=== PATIENT | male | born 1980 | race African-American/Black ===

== ENCOUNTER 2016-08-24 16:16 | Emergency (ER) | payer BC ==
[~2016-08-24] VITALS: Ht 177.8 cm; Wt 114.3 kg
[~2016-08-24 16:16] MED LIST: HYDROCODONE BIT1 T11 PO; KEFLEX500 MG PO; MOTRIN800 MG PO; PREDNICOT20 MG PO; ZITHROMAX Z PA250 MG PO
[2016-08-24 16:32] LABS: BILIRUBIN NEGATIVE (NEGATIVE); BLOOD TRACE-LYSED (NEGATIVE); CLARITY CLEAR (CLEAR); COLOR YELLOW (YELLOW); GLUCOSE NEGATIVE (NEGATIVE); KETONE NEGATIVE (NEGATIVE); LEUKO ESTERASE NEGATIVE (NEGATIVE); NITRITE NEGATIVE (NEGATIVE); PROTEIN NEGATIVE (NEGATIVE); UROBILINOGEN 0.2 E.U./dl (0.2-1.0)
[2016-08-24 16:47] LABS: BACTERIA TRACE; WBC 0-2 wbc/hpf (0-5)
[2016-08-24 16:48] LABS: URINE REFLEX COMMENT NO (NO)
[2016-08-24] MEDS ORDERED: ZYRTEC10 MG PO (17:48)
== END 2016-08-24 17:15 | disposition home or self-care (01) ==
LOC: ED 16:16
PROVIDERS: Emergency Medicine
DX: R51 Headache (principal); F17.200 Nicotine dependence, unspecified, uncomplicated

== ENCOUNTER 2016-12-09 08:27 | Emergency (ER) | payer BC ==
[~2016-12-09] VITALS: Ht 177.8 cm; Wt 127.9 kg
[~2016-12-09 08:27] MED LIST changes: +ZYRTEC10 MG PO
[2016-12-09 09:12] LABS: BILIRUBIN NEGATIVE (NEGATIVE); BLOOD TRACE-INTACT (NEGATIVE); CLARITY CLEAR (CLEAR); COLOR YELLOW (YELLOW); GLUCOSE NEGATIVE (NEGATIVE); KETONE NEGATIVE (NEGATIVE); LEUKO ESTERASE NEGATIVE (NEGATIVE); NITRITE NEGATIVE (NEGATIVE); PH 6.5 (5.0-9.0); SPECIFIC GRAVITY 1.025 (1.005-1.030); UROBILINOGEN 0.2 E.U./dl (0.2-1.0)
[2016-12-09 09:29] LABS: BACTERIA TRACE; MUCOUS 1+
[2016-12-09] MEDS ORDERED: ZITHROMAX250 MG PO (09:43)
== END 2016-12-09 10:08 | disposition home or self-care (01) ==
LOC: ED 08:27
PROVIDERS: Emergency Medicine
DX: J06.9 Acute upper respiratory infection, unspecified (principal); M54.5 Low back pain; R10.30 Lower abdominal pain, unspecified; F17.200 Nicotine dependence, unspecified, uncomplicated; Z87.442 Personal history of urinary calculi

== ENCOUNTER 2016-12-31 10:42 | Emergency (ER) | payer BC ==
[~2016-12-31] VITALS: Ht 177.8 cm; Wt 127.9 kg
[~2016-12-31 10:42] MED LIST changes: +ZITHROMAX250 MG PO
[2016-12-31 11:15] LABS: BASO # 0.1 10*3/uL (0.0-0.1); BASO % 0.6 % (0.0-1.0); EOS # 0.4 10*3/uL (0.0-0.4); EOS % 3.6 % (1.0-4.0); HEMATOCRIT 45.2 % (42.0-52.0); HEMOGLOBIN 14.3 g/dl (14.0-18.0); LYMPH # 2.5 10*3/uL (1.3-4.4); LYMPH % 22.1 % (27.0-41.0); MEAN CELL VOLUME 90.2 fl (80.0-94.0); MEAN CORPUSCULAR HGB 28.5 pg (27.0-31.0); MEAN CORPUSCULAR HGB CONC 31.6 g/dl (33.0-37.0); MEAN PLATELET VOLUME 11.2 fl (9.6-12.3); MONO % 9.1 % (3.0-9.0); NEUT # 7.2 10*3/uL (2.3-7.9); NEUT % 64.2 % (47.0-73.0); PLATELET COUNT AUTOMATED 234 10*3/uL (130-400); RED BLOOD COUNT 5.01 10*6/uL (4.50-5.90); RED CELL DISTRI WIDTH 13.5 % (0-14.5); WHITE BLOOD COUNT 11.3 10*3/uL (4.8-10.8)
[2016-12-31 11:20] LABS: BILIRUBIN NEGATIVE (NEGATIVE); BLOOD 1+ (NEGATIVE); CLARITY CLEAR (CLEAR); COLOR YELLOW (YELLOW); GLUCOSE NEGATIVE (NEGATIVE); KETONE NEGATIVE (NEGATIVE); LEUKO ESTERASE NEGATIVE (NEGATIVE); NITRITE NEGATIVE (NEGATIVE); PH 5.5 (5.0-9.0); SPECIFIC GRAVITY 1.025 (1.005-1.030); UROBILINOGEN 0.2 E.U./dl (0.2-1.0)
[2016-12-31 11:28] LABS: MUCOUS TRACE
[2016-12-31 11:30] LABS: ALBUMIN 3.9 gm/dl (3.1-4.5); ALKALINE PHOSPHATASE 56 U/L (45-117); BUN 18 mg/dl (7-24); CHLORIDE 107 mmol/L (98-107); CREATININE 1.11 mg/dL (0.70-1.30); SGOT/AST 30 IU/L (3-35); SGPT/ALT 41 U/L (12-78); SODIUM 139 mmol/L (136-145); TOTAL PROTEIN 8.2 gm/dL (6.4-8.2)
== END 2016-12-31 13:32 | disposition home or self-care (01) ==
LOC: ED 10:42
PROVIDERS: Nurse Practitioner Family
DX: N34.2 Other urethritis (principal); R03.0 Elevated blood-pressure reading, without diagnosis of hypertension; R31.9 Hematuria, unspecified; F17.200 Nicotine dependence, unspecified, uncomplicated

== ENCOUNTER 2017-06-22 08:59 | Emergency (ER) | payer BC ==
[~2017-06-22] VITALS: Ht 177.8 cm; Wt 138.8 kg
[2017-06-22] MEDS ORDERED: PROVENTIL HFA6.7 GM INH (10:40)
[2017-06-22] MEDS ORDERED: ZITHROMAX250 MG PO (10:40)
[2017-06-22] MEDS ORDERED: PREDNISONE20 M1 PO (10:40)
== END 2017-06-22 10:44 | disposition home or self-care (01) ==
LOC: ED 08:59
DX: S90.852A Superficial foreign body, left foot, initial encounter (principal); J45.20 Mild intermittent asthma, uncomplicated; Z87.442 Personal history of urinary calculi; Z79.899 Other long term (current) drug therapy; X58.XXXA Exposure to other specified factors, initial encounter; Y93.89 Activity, other specified; Y92.69 Other specified industrial and construction area as the place of occurrence of the external cause; Y99.9 Unspecified external cause status

== ENCOUNTER → 2017-10-29 | Outpatient (CLI) | payer BC ==
[~2017-10-29] MED LIST changes: +PREDNISONE20 M1 PO; +PREDNISONE50 MG PO; +PROVENTIL HFA6.7 GM INH
== END | disposition home or self-care (01) ==
LOC: RESCLI 02:28
DX: E66.9 Obesity, unspecified (principal); M54.5 Low back pain; A60.1 Herpesviral infection of perianal skin and rectum; Z87.442 Personal history of urinary calculi; Z72.0 Tobacco use; Z71.6 Tobacco abuse counseling; Z71.89 Other specified counseling; Z88.8 Allergy status to other drugs, medicaments and biological substances

== ENCOUNTER 2017-11-08 03:42 | Emergency (ER) | payer BC ==
[~2017-11-08] VITALS: Ht 177.8 cm; Wt 133.4 kg
[~2017-11-08 03:42] MED LIST changes: -PREDNISONE50 MG PO
[2017-11-08] MEDS ORDERED: PREDNISONE50 MG PO (03:56)
== END 2017-11-08 04:09 | disposition home or self-care (01) ==
LOC: ED 03:42
DX: M25.571 Pain in right ankle and joints of right foot (principal); Z79.899 Other long term (current) drug therapy; Z87.442 Personal history of urinary calculi

== ENCOUNTER 2017-12-14 15:28 | Emergency (ER) | payer BC ==
[~2017-12-14] VITALS: Ht 177.8 cm; Wt 133.4 kg
[~2017-12-14 15:28] MED LIST changes: +PREDNISONE50 MG PO
[2017-12-14] MEDS ORDERED: VALACYCLOVIR H500 M1 PO ×2 (15:37→17:41)
[2017-12-14] MEDS ORDERED: ZOVIRAX5 GM T (17:41)
[2018-02-14] MEDS ORDERED: PREDNISONE50 MG PO (11:37)
[2018-02-14] MEDS ORDERED: PROAIR HFA8.5 GM INH (11:37)
== END 2017-12-14 17:55 | disposition home or self-care (01) ==
LOC: ED 15:28
DX: M25.571 Pain in right ankle and joints of right foot (principal); A60.00 Herpesviral infection of urogenital system, unspecified; M25.471 Effusion, right ankle; F17.200 Nicotine dependence, unspecified, uncomplicated; Z76.0 Encounter for issue of repeat prescription

== ENCOUNTER → 2017-12-30 | Outpatient (CLI) | payer BC ==
[~2017-12-30] MED LIST changes: +PROAIR HFA8.5 GM INH; +VALACYCLOVIR H500 M1 PO; +ZOVIRAX5 GM T
== END | disposition home or self-care (01) ==
LOC: US 14:25
DX: M79.661 Pain in right lower leg (principal); R60.9 Edema, unspecified

== ENCOUNTER → 2018-04-01 | Outpatient (CLI) | payer BC ==
[~2018-04-01] MED LIST changes: +MOBIC15 MG PO
== END | disposition home or self-care (01) ==
LOC: RESCLI 01:51
DX: Z00.00 Encounter for general adult medical examination without abnormal findings (principal); E66.9 Obesity, unspecified; F10.10 Alcohol abuse, uncomplicated; G47.30 Sleep apnea, unspecified; A60.1 Herpesviral infection of perianal skin and rectum; I10 Essential (primary) hypertension; F17.210 Nicotine dependence, cigarettes, uncomplicated; Z88.8 Allergy status to other drugs, medicaments and biological substances

== ENCOUNTER 2018-04-18 10:39 | Emergency (ER) | payer BC ==
[~2018-04-18] VITALS: Ht 177.8 cm; Wt 137.4 kg
[~2018-04-18 10:39] MED LIST changes: -MOBIC15 MG PO
[2018-04-18] MEDS ORDERED: MOBIC15 MG PO (12:53)
== END 2018-04-18 13:10 | disposition home or self-care (01) ==
LOC: ED 10:39
DX: M79.89 Other specified soft tissue disorders (principal); M79.672 Pain in left foot; M25.572 Pain in left ankle and joints of left foot; J45.909 Unspecified asthma, uncomplicated; Z79.899 Other long term (current) drug therapy; Z87.442 Personal history of urinary calculi

== ENCOUNTER → 2018-05-03 | Outpatient (CLI) | payer BC ==
[~2018-05-03] MED LIST changes: +AMOXICILLIN500 M2 PO; +MOBIC15 MG PO; +Motrin,Rufen800 MG PO
[2018-05-03 16:41] LABS: BASO # 0.1 10*3/uL (0.0-0.1); BASO % 0.4 % (0.0-1.0); EOS # 0.3 10*3/uL (0.0-0.4); EOS % 1.8 % (1.0-4.0); HEMATOCRIT 45.2 % (42.0-52.0); HEMOGLOBIN 14.5 g/dl (14.0-18.0); LYMPH # 3.6 10*3/uL (1.3-4.4); LYMPH % 21.3 % (27.0-41.0); MEAN CELL VOLUME 89.5 fl (80.0-94.0); MEAN CORPUSCULAR HGB 28.7 pg (27.0-31.0); MEAN CORPUSCULAR HGB CONC 32.1 g/dl (33.0-37.0); MEAN PLATELET VOLUME 10.5 fl (9.6-12.3); NEUT # 11.7 10*3/uL (2.3-7.9); NEUT % 69.8 % (47.0-73.0); PLATELET COUNT AUTOMATED 306 10*3/uL (130-400); RED BLOOD COUNT 5.05 10*6/uL (4.50-5.90); RED CELL DISTRI WIDTH 13.6 % (0-14.5); WHITE BLOOD COUNT 16.8 10*3/uL (4.8-10.8)
[2018-05-03 17:03] LABS: BUN 21 mg/dl (7-24); CHLORIDE 104 mmol/L (98-107); CHOLESTEROL 193 mg/dL (<200); HDL CHOLESTEROL 50 mg/dl (40-60); LDL CHOLESTEROL 116 mg/dL (9-159); POTASSIUM 3.4 mmol/L (3.5-5.1); SGOT/AST 16 IU/L (3-35); SGPT/ALT 36 U/L (12-78); SODIUM 138 mmol/L (136-145); TOTAL PROTEIN 8.5 gm/dL (6.4-8.2); TRIGLYCERIDES 135 mg/dl (<150); VLDL CHOLESTEROL 27 mg/dL (6-40)
[2018-05-03 17:11] LABS: ALKALINE PHOSPHATASE 63 U/L (45-117)
[2018-05-03 18:07] LABS: VITAMIN D, 25-HYDROXY 18.5 ng/mL (30-100)
== END | disposition home or self-care (01) ==
LOC: RESCLI 02:36 → LAB 06:52 → RESCLI 14:26
PROVIDERS: Emergency Medicine
DX: E66.9 Obesity, unspecified (principal)

== ENCOUNTER 2018-09-21 15:26 | Emergency (ER) | payer BC ==
[~2018-09-21] VITALS: Ht 177.8 cm; Wt 141.5 kg
[~2018-09-21 15:26] MED LIST changes: -AMOXICILLIN500 M2 PO; -Motrin,Rufen800 MG PO
[2018-09-21] MEDS ORDERED: Motrin,Rufen800 MG PO (15:43)
[2018-09-21] MEDS ORDERED: AMOXICILLIN500 M2 PO (15:43)
== END 2018-09-21 15:56 | disposition home or self-care (01) ==
LOC: ED 15:26
DX: K08.89 Other specified disorders of teeth and supporting structures (principal); Z79.899 Other long term (current) drug therapy

== ENCOUNTER 2018-10-26 13:05 | Emergency (ER) | payer BC ==
[~2018-10-26] VITALS: Ht 177.8 cm; Wt 143.8 kg
[~2018-10-26 13:05] MED LIST changes: +AMOXICILLIN500 M2 PO; +Motrin,Rufen800 MG PO
== END 2018-10-26 13:40 | disposition left against medical advice (07) ==
LOC: ED 13:05
DX: R00.2 Palpitations (principal); R03.0 Elevated blood-pressure reading, without diagnosis of hypertension; E66.9 Obesity, unspecified; J45.909 Unspecified asthma, uncomplicated; F17.200 Nicotine dependence, unspecified, uncomplicated; Z79.899 Other long term (current) drug therapy; Z87.442 Personal history of urinary calculi

== ENCOUNTER 2019-04-04 09:52 | Emergency (ER) | payer BC ==
[2019-04-04] MEDS ORDERED: MEDROL DOSEPAK4 MG PO (10:06)
== END 2019-04-04 10:10 | disposition home or self-care (01) ==
LOC: ED 09:52
DX: M79.89 Other specified soft tissue disorders (principal); M25.572 Pain in left ankle and joints of left foot; Z79.899 Other long term (current) drug therapy

== ENCOUNTER → 2019-05-22 | Outpatient (CLI) | payer BC ==
[~2019-05-22] MED LIST changes: +MEDROL DOSEPAK4 MG PO
== END | disposition home or self-care (01) ==
LOC: RESCLI 01:17
DX: I10 Essential (primary) hypertension (principal); E66.9 Obesity, unspecified; G47.30 Sleep apnea, unspecified; A60.1 Herpesviral infection of perianal skin and rectum; F10.11 Alcohol abuse, in remission; Z87.442 Personal history of urinary calculi; Z87.891 Personal history of nicotine dependence; F17.200 Nicotine dependence, unspecified, uncomplicated

== ENCOUNTER 2019-06-08 15:26 | Emergency (ER) | payer BC ==
[~2019-06-08] VITALS: Ht 177.8 cm; Wt 151.0 kg
[2019-06-08 15:51] LABS: BILIRUBIN NEGATIVE (NEGATIVE); BLOOD 1+ (NEGATIVE); CLARITY CLEAR (CLEAR); COLOR YELLOW (YELLOW); GLUCOSE NEGATIVE (NEGATIVE); KETONE NEGATIVE (NEGATIVE); LEUKO ESTERASE NEGATIVE (NEGATIVE); NITRITE NEGATIVE (NEGATIVE); UROBILINOGEN 0.2 E.U./dl (0.2-1.0)
[2019-06-08 15:56] LABS: WBC 0-2 wbc/hpf (0-5)
[2019-06-08 16:15] LABS: BASO # 0.1 10*3/uL (0.0-0.1); BASO % 0.6 % (0.0-1.0); EOS # 0.4 10*3/uL (0.0-0.4); EOS % 3.1 % (1.0-4.0); HEMOGLOBIN 13.6 g/dl (14.0-18.0); LYMPH % 26.2 % (27.0-41.0); MEAN CELL VOLUME 88.8 fl (80.0-94.0); MEAN CORPUSCULAR HGB 28.1 pg (27.0-31.0); MEAN CORPUSCULAR HGB CONC 31.6 g/dl (33.0-37.0); MEAN PLATELET VOLUME 10.3 fl (9.6-12.3); MONO % 9.1 % (3.0-9.0); NEUT # 6.9 10*3/uL (2.3-7.9); NEUT % 60.6 % (47.0-73.0); PLATELET COUNT AUTOMATED 300 10*3/uL (130-400); RED BLOOD COUNT 4.84 10*6/uL (4.50-5.90); RED CELL DISTRI WIDTH 13.9 % (0-14.5); WHITE BLOOD COUNT 11.4 10*3/uL (4.8-10.8)
[2019-06-08 16:30] LABS: ALBUMIN 3.8 gm/dl (3.1-4.5); ALKALINE PHOSPHATASE 70 U/L (45-117); BUN 12 mg/dl (7-24); CHLORIDE 106 mmol/L (98-107); CREATININE 1.05 mg/dL (0.70-1.30); LIPASE 116 U/L (73-393); POTASSIUM 3.6 mmol/L (3.5-5.1); SGOT/AST 25 IU/L (3-35); SGPT/ALT 40 U/L (12-78); SODIUM 141 mmol/L (136-145); TOTAL PROTEIN 8.2 gm/dL (6.4-8.2)
[2019-06-08 16:39] LABS: THYROID STIM HORMONE (HS) 2.58 uIU/ml (0.358-4.75)
== END 2019-06-08 16:55 | disposition home or self-care (01) ==
LOC: ED 15:26
PROVIDERS: Emergency Medicine
DX: M54.9 Dorsalgia, unspecified (principal); R10.30 Lower abdominal pain, unspecified; E66.01 Morbid (severe) obesity due to excess calories; J45.909 Unspecified asthma, uncomplicated; Z87.442 Personal history of urinary calculi; Z79.899 Other long term (current) drug therapy

== ENCOUNTER 2019-08-03 09:45 | Emergency (ER) | payer BC ==
[~2019-08-03] VITALS: Wt 149.7 kg
[2019-08-03] MEDS ORDERED: DOXYCYCLINE100 M3 PO (10:47)
[2019-08-03] MEDS ORDERED: Motrin,Rufen800 MG PO (10:47)
== END 2019-08-03 11:14 | disposition home or self-care (01) ==
LOC: ED 09:45
DX: L02.31 Cutaneous abscess of buttock (principal); Z79.899 Other long term (current) drug therapy

== ENCOUNTER 2019-08-07 07:47 | Emergency (ER) | payer BC ==
[~2019-08-07] VITALS: Ht 180.3 cm; Wt 149.7 kg
[~2019-08-07 07:47] MED LIST changes: +DOXYCYCLINE100 M3 PO
== END 2019-08-07 08:50 | disposition home or self-care (01) ==
LOC: ED 07:47
DX: K64.5 Perianal venous thrombosis (principal); E66.01 Morbid (severe) obesity due to excess calories; J45.909 Unspecified asthma, uncomplicated; Z79.899 Other long term (current) drug therapy; Z79.2 Long term (current) use of antibiotics; Z87.442 Personal history of urinary calculi

== ENCOUNTER 2019-08-10 11:57 | Inpatient (IN) | payer BC ==
[~2019-08-10] VITALS: Ht 180.3 cm; Wt 147.9 kg
[2019-08-10 12:04] VITALS: BP 128/73
[2019-08-10 13:40] VITALS: BP 121/71
[2019-08-10 14:30] VITALS: BP 123/74
[2019-08-10 16:00] VITALS: BP 123/50
[2019-08-10 16:25] LABS: HEMATOCRIT 45.3 % (42.0-52.0); MEAN CELL VOLUME 90.6 fl (80.0-94.0); MEAN CORPUSCULAR HGB 28.8 pg (27.0-31.0); MEAN CORPUSCULAR HGB CONC 31.8 g/dl (33.0-37.0); MEAN PLATELET VOLUME 10.3 fl (9.6-12.3); PLATELET COUNT AUTOMATED 308 10*3/uL (130-400); RED CELL DISTRI WIDTH 14.2 % (0-14.5); WHITE BLOOD COUNT 19.7 10*3/uL (4.8-10.8)
[2019-08-10 16:37] LABS: ACT PARTIAL THROMBO TIME 27.2 SECONDS (20.0-32.1); INTERNATIONAL NORM RATIO 1.1 (2.0-3.5)
[2019-08-10 16:40] LABS: ALBUMIN 3.2 gm/dl (3.1-4.5); ALKALINE PHOSPHATASE 70 U/L (45-117); BUN 11 mg/dl (7-24); CHLORIDE 107 mmol/L (98-107); CREATININE 1.06 mg/dL (0.70-1.30); SGOT/AST 20 IU/L (3-35); SGPT/ALT 30 U/L (12-78); SODIUM 138 mmol/L (136-145); TOTAL PROTEIN 8.1 gm/dL (6.4-8.2)
[2019-08-10 16:44] LABS: PLATELET SUFFICIENCY NORMAL (NORMAL); TOTAL CELLS COUNTED 100 #CELLS
[2019-08-10 16:45] LABS: BURR CELLS FEW
[2019-08-10 17:00] VITALS: BP 126/59
--- NOTE | 2019-08-10 17:00 | NUR ---
Time: 1699 A 39 year old MALE admitted to 5E under services of RUBIN JUAREZ DO. Pt. arrived via bed from ER. Chief complaint: PERIRECTAL ABSCESS, STARTED ABOUT 1 WEEK AGO. JOJO JEFFERSON
[2019-08-10] MEDS ORDERED: ZESTRIL10 MG PO (17:48)
--- NOTE | 2019-08-10 18:10 | NUR ---
pt medicated with [place] at this time for complaints of 8/10 pain to buttocks abscess. will monitor.
--- NOTE | 2019-08-10 19:10 | NUR ---
PER PATIENT, NORCO HAS BEEN EFFECTIVE. RELAXED AT THIS TIME.
[2019-08-10 20:00] VITALS: BP 132/47
--- NOTE | 2019-08-10 20:00 | NUR ---
PATIENT VOICED NO COMPLAINTS. NO OVERT DISTRESS NOTED, RESP ARE EASY AND REGULAR. BED IS LOCKED IN LOWEST POSITION. PATIENT AWARE OF NPO STATUS AT 0000 TONIGHT. CALL LIGHT WITHIN REACH
[2019-08-11] VITALS (8 sets, daily range): BP systolic 100–141; BP diastolic 56–81
--- NOTE | 2019-08-11 04:00 | NUR ---
PATIENT ASLEEP, EYES CLOSED. NO DISTRESS NOTED. CALL LIGHT WITHIN REACH.
--- NOTE | 2019-08-11 04:30 | NUR ---
PATIENT SHOWERED WITH [facility] FOR POSSIBLE I&D
--- NOTE | 2019-08-11 05:00 | NUR ---
RADHA SAEZ [id number] Please refer to the physician's history and physical for past medical history, comorbid conditions, and allergies. Diagnosis: PERIRECTAL ABSCESS Reji Score: 23,LOW OR NO RISK WOUND DESCRIPTIONS: Wound Number: 1 Location of the wound: Left buttocks Type of wound: abscess Thickness: Full Size: 6.5cm x 2.0cm x 0.1cm Tunneling: none Undermining: none Sinus Tract: none Presence of Exudate: Serosanguineous Amount: Light Color: Yellow, red Odor: None Periwound Skin Appearance: Edema, warmth Wound edges: approximated Pain (associated with wound): very tender to touch How does patient state this happened? pt stated this started last and was prescribed antibiotics from Dr. Zuniga he then stated he followed with Dr. Schultz who stated it was a fissue and he was ordered more antibiotics and called him and he stated it was getting worse and Dr. Schultz stated to come here Wound Number: 2 Location of the wound: Right buttocks Type of wound: abscess Thickness: Full Size: 3.0cm x 2.5cm x <0.1cm Tunneling: none Undermining: none Sinus Tract: none Presence of Exudate: none Amount: none Color: Yellow, red Odor: None Periwound Skin Appearance: Edema, warmth Wound edges: approximated Pain (associated with wound): very tender to touch How does patient state this happened? pt stated this started last and was prescribed antibiotics from Dr. Zuniga he then stated he followed with Dr. Schultz who stated it was a fissue and he was ordered more antibiotics and called him and he stated it was getting worse and Dr. Schultz stated to come here Surface the patient is resting on: Proform SKIN PREVENTION RECOMMENDATION: 1. Pressure redistribution support surface as appropriate 2. Elevate heels 3. Remove boots/TEDS every shift and reapply 4. Head of bed 30 degrees as tolerated 5. Assess nutrition and hydration 6. Manage moisture 7. Avoid the use of containment devices while in bed 8. Use absorptive products on surfaces limit layers of linens on bed 9. Turn and reposition every 1-2 hours in bed and every 1 hour in chair as tolerated 10. Weight shifts every 15 minutes while up in chair 11. Offloading with pillows or device to keep heels elevated off bed 12. Monitor skin at least every shift 13. Inspect under medical devices twice a day WOUND TREATMENT RECOMMENDATIONS: Dr. Schultz is already on consult Warm compresses to right and left buttocks qid for 15 minutes or as tolerated Cleanse right and left buttocks with nss and apply dsd daily and prn for soiling. Wheelchair cushion when oob.
--- NOTE | 2019-08-11 05:13 | NUR ---
Patient states he will follow up in Dr. Schultz's office or the wound care center upon discharge he also stated that he father we do dressing changes if needed
[2019-08-11 06:27] LABS: MEAN CELL VOLUME 90.5 fl (80.0-94.0); MEAN CORPUSCULAR HGB 28.6 pg (27.0-31.0); MEAN CORPUSCULAR HGB CONC 31.6 g/dl (33.0-37.0); MEAN PLATELET VOLUME 10.6 fl (9.6-12.3); PLATELET COUNT AUTOMATED 365 10*3/uL (130-400); RED BLOOD COUNT 4.97 10*6/uL (4.50-5.90); RED CELL DISTRI WIDTH 13.9 % (0-14.5); WHITE BLOOD COUNT 19.1 10*3/uL (4.8-10.8)
[2019-08-11 06:59] LABS: BUN 13 mg/dl (7-24); CHLORIDE 103 mmol/L (98-107); POTASSIUM 3.7 mmol/L (3.5-5.1); SODIUM 139 mmol/L (136-145)
[2019-08-11 07:00] LABS: CREATININE 1.16 mg/dL (0.70-1.30)
[2019-08-11 07:10] LABS: PLATELET SUFFICIENCY NORMAL (NORMAL); TOTAL CELLS COUNTED 100 #CELLS
--- NOTE | 2019-08-11 07:33 | NUR ---
Dr. Farrell notified of wound care recommendations.
--- NOTE | 2019-08-11 09:00 | NUR ---
Acid Polymerization Operator in to talk to patient. Patient states lives at home with parents. There are no steps in the home. Physician: [facility] Home health services: none Patient's level of ADLs: independent Patient has working utilities: all working DME: none Follow-up physician's appointment after d/c: will be made by hospitalist nurse director upon discharge Does patient want to access PORTAL?: no Discharge plan discussed with patient he states he lives at home with his parents, he is independent in adls and ambulation, works, drives, he states he will return home when medically stable and denies any home needs. ANA NORRIS
--- NOTE | 2019-08-11 12:15 | NUR ---
PATIENT TAKEN OFF FLOOR TO SURGERY AT THIS TIME.
--- NOTE | 2019-08-11 15:00 | NUR ---
PER PATIENT, DILAUDID HAS BEEN EFFECTIVE. DENIES ANY COMPLAINTS AT THIS TIME.
--- NOTE | 2019-08-11 21:17 | NUR ---
PATIENT C/O ABSCESS PAIN. RATES PAIN 8/10. MEDICATED WITH MORPHINE. WILL CHECK EFFECTIVENESS.
--- NOTE | 2019-08-11 23:00 | NUR ---
PATIENT SLEEPING, EYES CLOSED. NO DISTRESS NOTED. CALL LIGHT WITHIN REACH
[2019-08-12] VITALS: BP 114/62
--- NOTE | 2019-08-12 04:00 | NUR ---
PATIENT ASLEEP, EYES CLOSED. NO DISTRESS NOTED. CALL LIGHT WITHIN REACH
[2019-08-12 06:04] LABS: ALBUMIN 2.8 gm/dl (3.1-4.5); ALKALINE PHOSPHATASE 56 U/L (45-117); BUN 14 mg/dl (7-24); CHLORIDE 110 mmol/L (98-107); SGOT/AST 21 IU/L (3-35); SGPT/ALT 28 U/L (12-78); SODIUM 139 mmol/L (136-145); TOTAL PROTEIN 7.2 gm/dL (6.4-8.2)
[2019-08-12 06:13] LABS: BASO # 0.1 10*3/uL (0.0-0.1); BASO % 0.4 % (0.0-1.0); EOS # 0.4 10*3/uL (0.0-0.4); EOS % 3.3 % (1.0-4.0); HEMATOCRIT 44.2 % (42.0-52.0); LYMPH # 2.1 10*3/uL (1.3-4.4); LYMPH % 17.1 % (27.0-41.0); MEAN CELL VOLUME 89.3 fl (80.0-94.0); MEAN CORPUSCULAR HGB 28.5 pg (27.0-31.0); MEAN CORPUSCULAR HGB CONC 31.9 g/dl (33.0-37.0); MEAN PLATELET VOLUME 10.4 fl (9.6-12.3); MONO # 1.3 10*3/uL (0.1-1.0); MONO % 10.5 % (3.0-9.0); NEUT # 8.2 10*3/uL (2.3-7.9); NEUT % 68.4 % (47.0-73.0); PLATELET COUNT AUTOMATED 318 10*3/uL (130-400); RED BLOOD COUNT 4.95 10*6/uL (4.50-5.90); RED CELL DISTRI WIDTH 13.8 % (0-14.5)
[2019-08-12 08:00] VITALS: BP 135/75
--- NOTE | 2019-08-12 08:00 | NUR ---
IN TO SEE PATIENT.
--- NOTE | 2019-08-12 11:13 | NUR ---
PT REQUESTED AND RECEIVED PO NORCO PER PRN ORDER FOR C/O CRISTAL-RECTAL PAIN DUE TO ABSCESS. RATES PAIN 10/05. WILL MONITOR EFFECTIVENESS.
--- NOTE | 2019-08-12 12:07 | NUR ---
DISCHARGE PHOTOS OBTAINED PER POLICY.
--- NOTE | 2019-08-12 12:13 | NUR ---
NORCO EFFECTIVE PER PT. WILL CONTINUE TO MONITOR.
--- NOTE | 2019-08-12 12:47 | NUR ---
Discharge instructions reviewed with patient/family. Patient receptive and verbalizes understanding. Follow-up care arranged. Written instructions given to patient/family. LEI BARNES.
== END 2019-08-12 13:00 | disposition home or self-care (01) | DRG 854 ==
LOC: ED 11:57 → EDHOLD 15:43 → 5E 15:43
PROVIDERS: Family Medicine; Student in an Organized Health Care Education/Training Program; ADMIT Emergency Medicine
PROC: 0D9P0ZZ Drainage of Rectum, Open Approach (ICD-10-PCS; principal; 2019-08-11)
DX: A41.9 Sepsis, unspecified organism (principal); K61.1 Rectal abscess; I10 Essential (primary) hypertension; E83.41 Hypermagnesemia; Z87.442 Personal history of urinary calculi; Z79.899 Other long term (current) drug therapy

== ENCOUNTER 2019-11-14 10:48 | Emergency (ER) | payer BC ==
[~2019-11-14] VITALS: Ht 180.3 cm; Wt 149.7 kg
[~2019-11-14 10:48] MED LIST changes: +ZESTRIL10 MG PO
[2019-11-14 12:00] LABS: BASO # 0.1 10*3/uL (0.0-0.1); BASO % 0.4 % (0.0-1.0); EOS # 0.2 10*3/uL (0.0-0.4); EOS % 1.5 % (1.0-4.0); HEMATOCRIT 42.7 % (42.0-52.0); LYMPH # 2.1 10*3/uL (1.3-4.4); MEAN CELL VOLUME 91.6 fl (80.0-94.0); MEAN CORPUSCULAR HGB 28.3 pg (27.0-31.0); MEAN CORPUSCULAR HGB CONC 30.9 g/dl (33.0-37.0); MONO # 1.3 10*3/uL (0.1-1.0); MONO % 9.7 % (3.0-9.0); NEUT # 9.3 10*3/uL (2.3-7.9); PLATELET COUNT AUTOMATED 233 10*3/uL (130-400); RED BLOOD COUNT 4.66 10*6/uL (4.50-5.90); RED CELL DISTRI WIDTH 14.3 % (0-14.5); WHITE BLOOD COUNT 12.9 10*3/uL (4.8-10.8)
[2019-11-14 12:18] LABS: ALBUMIN 3.6 gm/dl (3.1-4.5); ALKALINE PHOSPHATASE 64 U/L (45-117); BUN 15 mg/dl (7-24); CHLORIDE 108 mmol/L (98-107); CREATININE 0.92 mg/dL (0.70-1.30); POTASSIUM 3.8 mmol/L (3.5-5.1); SGOT/AST 16 IU/L (3-35); SGPT/ALT 35 U/L (12-78); SODIUM 140 mmol/L (136-145); TOTAL PROTEIN 8.2 gm/dL (6.4-8.2)
[2019-11-14] MEDS ORDERED: VIBRAMYCIN100 MG PO (14:34)
[2019-11-14] MEDS ORDERED: NAPROSYN500 MG PO (14:34)
== END 2019-11-14 14:40 | disposition home or self-care (01) ==
LOC: ED 10:48
PROVIDERS: Nurse Practitioner Family
DX: K61.1 Rectal abscess (principal); K61.0 Anal abscess; Z79.899 Other long term (current) drug therapy

== ENCOUNTER → 2019-12-27 | Outpatient (CLI) | payer BC ==
[~2019-12-27] MED LIST changes: +NAPROSYN500 MG PO; +VIBRAMYCIN100 MG PO
== END | disposition home or self-care (01) ==
LOC: COVID19 03:32
PROVIDERS: ATTEND Surgery
DX: Z01.812 Encounter for preprocedural laboratory examination (principal); Z20.828 Contact with and (suspected) exposure to other viral communicable diseases

== ENCOUNTER 2020-03-04 15:42 | Emergency (ER) | payer BC ==
[~2020-03-04] VITALS: Ht 406.4 cm; Wt 136.1 kg
== END 2020-03-04 16:39 | disposition home or self-care (01) ==
LOC: ED 15:42
DX: R50.9 Fever, unspecified (principal); R51.9 Headache, unspecified; I10 Essential (primary) hypertension; F17.200 Nicotine dependence, unspecified, uncomplicated; Z20.828 Contact with and (suspected) exposure to other viral communicable diseases; Z79.899 Other long term (current) drug therapy

== ENCOUNTER → 2020-04-05 | Outpatient (CLI) | payer BC | END | disposition home or self-care (01) | LOC: RESCLI 00:24 | PROVIDERS: ATTEND Family Medicine | DX: I10 Essential (primary) hypertension (principal); R79.9 Abnormal finding of blood chemistry, unspecified; E55.9 Vitamin D deficiency, unspecified; Z79.899 Other long term (current) drug therapy; Z72.0 Tobacco use ==

== ENCOUNTER → 2020-07-12 | Outpatient (CLI) | payer BC | END | disposition home or self-care (01) | LOC: RESCLI 02:44 | PROVIDERS: ATTEND Family Medicine | DX: Z00.00 Encounter for general adult medical examination without abnormal findings (principal); I10 Essential (primary) hypertension; E55.9 Vitamin D deficiency, unspecified; Z79.899 Other long term (current) drug therapy; Z87.891 Personal history of nicotine dependence ==

== ENCOUNTER → 2020-07-15 | Outpatient (CLI) | payer BC ==
[2020-07-15 09:49] LABS: BASO # 0.1 10*3/uL (0.0-0.1); BASO % 0.4 % (0.0-1.0); EOS # 0.3 10*3/uL (0.0-0.4); EOS % 2.1 % (1.0-4.0); HEMATOCRIT 47.1 % (42.0-52.0); LYMPH # 2.4 10*3/uL (1.3-4.4); LYMPH % 18.4 % (27.0-41.0); MEAN CORPUSCULAR HGB 27.9 pg (27.0-31.0); MEAN CORPUSCULAR HGB CONC 31.6 g/dl (33.0-37.0); MEAN PLATELET VOLUME 10.6 fl (9.6-12.3); MONO # 1.3 10*3/uL (0.1-1.0); MONO % 10.4 % (3.0-9.0); NEUT # 8.8 10*3/uL (2.3-7.9); NEUT % 68.4 % (47.0-73.0); PLATELET COUNT AUTOMATED 269 10*3/uL (130-400); RED BLOOD COUNT 5.35 10*6/uL (4.50-5.90); WHITE BLOOD COUNT 12.8 10*3/uL (4.8-10.8)
[2020-07-15 10:06] LABS: ALBUMIN 3.2 gm/dl (3.1-4.5); ALKALINE PHOSPHATASE 67 U/L (45-117); BILIRUBIN, DIRECT 0.2 mg/dL (0.0-0.2); BUN 10 mg/dl (7-24); CHLORIDE 108 mmol/L (98-107); CHOLESTEROL 141 mg/dL (<200); CREATININE 1.01 mg/dL (0.70-1.30); HDL CHOLESTEROL 47 mg/dl (40-60); LDL CHOLESTEROL 62 mg/dL (9-159); POTASSIUM 4.1 mmol/L (3.5-5.1); SGOT/AST 21 IU/L (3-35); SGPT/ALT 34 U/L (12-78); SODIUM 140 mmol/L (136-145); TOTAL PROTEIN 7.9 gm/dL (6.4-8.2); TRIGLYCERIDES 161 mg/dl (<150); VLDL CHOLESTEROL 32 mg/dL (6-40)
[2020-07-15 11:03] LABS: VITAMIN D, 25-HYDROXY 37.4 ng/mL (30-100)
== END | disposition home or self-care (01) ==
LOC: LAB 09:33
PROVIDERS: Internal Medicine; ATTEND Internal Medicine Nephrology
DX: Z00.01 Encounter for general adult medical examination with abnormal findings (principal); I10 Essential (primary) hypertension

== ENCOUNTER 2020-08-25 09:42 | Emergency (ER) | payer BC ==
[~2020-08-25] VITALS: Ht 177.8 cm; Wt 149.7 kg
[2020-08-25] MEDS ORDERED: TYLENOL325 M1 PO (10:30)
[2020-08-25] MEDS ORDERED: NAPROSYN500 MG PO (10:30)
== END 2020-08-25 11:02 | disposition home or self-care (01) ==
LOC: ED 09:42
DX: S89.92XA Unspecified injury of left lower leg, initial encounter (principal); M25.462 Effusion, left knee; E66.01 Morbid (severe) obesity due to excess calories; I10 Essential (primary) hypertension; Z79.899 Other long term (current) drug therapy; Z87.442 Personal history of urinary calculi; X50.1XXA Overexertion from prolonged static or awkward postures, initial encounter; Y93.89 Activity, other specified; Y92.69 Other specified industrial and construction area as the place of occurrence of the external cause; Y99.8 Other external cause status

== ENCOUNTER → 2020-09-04 | Outpatient (CLI) | payer BC ==
[~2020-09-04] MED LIST changes: +TYLENOL325 M1 PO
== END | disposition home or self-care (01) ==
LOC: MRI 13:25
PROVIDERS: ATTEND Orthopaedic Surgery
DX: S83.412A Sprain of medial collateral ligament of left knee, initial encounter (principal); S83.012A Lateral subluxation of left patella, initial encounter; M22.2X2 Patellofemoral disorders, left knee; M66.0 Rupture of popliteal cyst; M25.462 Effusion, left knee; X50.1XXA Overexertion from prolonged static or awkward postures, initial encounter; Y93.89 Activity, other specified; Y92.89 Other specified places as the place of occurrence of the external cause; Y99.8 Other external cause status

== ENCOUNTER 2020-12-17 09:15 | Emergency (ER) | payer BC ==
[~2020-12-17] VITALS: Ht 177.8 cm; Wt 149.7 kg
== END 2020-12-17 11:32 | disposition home or self-care (01) ==
LOC: ED 09:15
DX: J06.9 Acute upper respiratory infection, unspecified (principal); Z20.822 Contact with and (suspected) exposure to COVID-19; E66.01 Morbid (severe) obesity due to excess calories; I10 Essential (primary) hypertension; Z79.899 Other long term (current) drug therapy; Z87.442 Personal history of urinary calculi

== ENCOUNTER → 2021-01-14 | Outpatient (CLI) | payer BC | END | disposition home or self-care (01) | LOC: RESCLI 00:34 | PROVIDERS: ATTEND Internal Medicine | DX: M54.9 Dorsalgia, unspecified (principal); I10 Essential (primary) hypertension; E66.01 Morbid (severe) obesity due to excess calories; Z72.89 Other problems related to lifestyle; Z79.899 Other long term (current) drug therapy ==

== ENCOUNTER 2021-03-26 15:22 | Emergency (ER) | payer BC ==
[~2021-03-26] VITALS: Ht 177.8 cm; Wt 149.7 kg
[2021-03-26] MEDS ORDERED: CEPHALEXIN500 M1 PO (20:14)
[2021-03-26] MEDS ORDERED: VIBRAMYCIN100 MG PO (20:14)
[2021-03-26] MEDS ORDERED: NAPROSYN500 MG PO (20:15)
== END 2021-03-26 20:21 | disposition home or self-care (01) ==
LOC: ED 15:22
DX: L03.317 Cellulitis of buttock (principal); F17.200 Nicotine dependence, unspecified, uncomplicated; Z79.899 Other long term (current) drug therapy

== ENCOUNTER → 2021-03-27 | Outpatient (CLI) | payer BC ==
[~2021-03-27] MED LIST changes: +CEPHALEXIN500 M1 PO
== END ==
LOC: WOUNDCARE 11:19
PROVIDERS: ATTEND Nurse Practitioner Family
DX: L02.31 Cutaneous abscess of buttock (principal); I10 Essential (primary) hypertension; F17.200 Nicotine dependence, unspecified, uncomplicated; Z98.890 Other specified postprocedural states; Z79.899 Other long term (current) drug therapy

== ENCOUNTER → 2021-04-04 | Outpatient (CLI) | payer BC | LOC: WOUNDCARE 06:13 | PROVIDERS: ATTEND Nurse Practitioner Family | DX: L02.31 Cutaneous abscess of buttock (principal); I10 Essential (primary) hypertension; F17.200 Nicotine dependence, unspecified, uncomplicated ==

== ENCOUNTER → 2021-08-29 | Outpatient (CLI) | payer BC | END | disposition home or self-care (01) | LOC: RESCLI 01:35 | PROVIDERS: ATTEND Internal Medicine | DX: Z00.00 Encounter for general adult medical examination without abnormal findings (principal); I10 Essential (primary) hypertension; Z79.899 Other long term (current) drug therapy ==

== ENCOUNTER → 2022-12-30 | Outpatient (CLI) | payer OTHER ==
[~2022-12-30] MED LIST changes: +HYDROCODONE-AC1 EAC1 PO
== END | disposition home or self-care (01) ==
LOC: ORTHO 09:50
PROVIDERS: ATTEND Orthopaedic Surgery
DX: M19.071 Primary osteoarthritis, right ankle and foot (principal)

== ENCOUNTER 2024-07-19 10:38 | Emergency (ER) | payer OTHER ==
[~2024-07-19] VITALS: Wt 154.2 kg
[2024-07-19] MEDS ORDERED: Acetaminophen/Oxycodone 5 MG/325 MG TABLET PO ONE ×2 (11:00→13:00)
[2024-07-19] MEDS ORDERED: HYDROmorphONE Hydrochloride 0.5 MG/0.5 ML SYRINGE IM ONE (12:55)
[2024-07-19] MEDS ORDERED: NAPROSYN500 MG PO (14:10)
[2024-07-19] MEDS ORDERED: methylPREDNISolone sod succ 125 MG VIAL IM ONE (14:15)
[2024-07-19] MEDS ORDERED: Water, Sterile 10 ML VIAL ONE (14:38)
== END 2024-07-19 14:40 | disposition home or self-care (01) ==
LOC: ED 10:38
DX: M17.12 Unilateral primary osteoarthritis, left knee (principal); M25.462 Effusion, left knee; I10 Essential (primary) hypertension; Z79.899 Other long term (current) drug therapy